=== PATIENT | male | born 1980 | race Caucasian/White ===

== ENCOUNTER → 2016-11-18 | Emergency (ER) | payer OTHER ==
[~2016-11-18] MED LIST: ACETAMINOPHEN 325 MG TABLET (FP) ONE; ACETAMINOPHEN 325 MG TABLET (FP) PO ONE
--- NOTE | 2016-11-18 08:45 | PDOC ---
History of Present Illness - General History Source: Patient Exam Limitations: No Limitations - History of Present Illness Initial Comments: 11/18/16 14:50 The patient is a 36-year-old male living at home, with past medical history significant for traumatic brain injury (1992 and 2010), who presents to the ED with left-sided rib pain s/p an unwitnessed fall in the bathroom a few days ago. The patient states that he experienced a dizzy spell before falling. The pt denies any current dizziness. He denies any loss of consciousness but states that he hit his head agaist the toilet and struck his L side against something. The patient reports having dizzy spells in the past. He states that his left-sided rib pain is intermittent and is exacerbated with deep inspiration and when he is sitting up. Upon examination, the patient denies experiencing any dizziness. Patient is a poor historian. Denies any headache, current dizziness, n/v, vision changes, numbnes/tingling/weakness. The patient denies any fever. chills, coughing, diarrhea, melena, bpr, abdominal pain, shortness of breath, or chest pain. The patient denies any urinary changes, hematuria. PCP: Dr. Chamberlain Allergies: Penicillins <Ami Joshi - Last Filed: 11/18/16 14:50> <Basil Chang - Last Filed: 11/18/16 17:29> - General Chief Complaint: Pain, Acute Stated Complaint: SIDE PAIN Time Seen by Provider: 11/18/16 08:10 Past History <Ami Joshi - Last Filed: 11/18/16 14:50> - Immunization History Immunization Up to Date: Yes - Psycho/Social/Smoking Cessation Hx Anxiety: No Suicidal Ideation: No Smoking History: Never smoked Have you smoked in the past 12 months: No If you are a former smoker, when did you quit?: 14 years ago Hx Alcohol Use: No Drug/Substance Use Hx: No Substance Use Type: None <Basil Chang - Last Filed: 11/18/16 17:29> - Past Medical History Allergies/Adverse Reactions: Allergies Allergy/AdvReac Type Severity Reaction Status Date / Time Penicillins Allergy Verified 06/03/16 14:17 Home Medications: Ambulatory Orders Unobtainable [Unobtainable] 11/18/16 Review of Systems - Review of Systems Able to Perform ROS?: Yes Comments:: 11/18/16 14:50 CONSTITUTIONAL: No reported: Fever, Chills, Diaphoresis, Generalized Weakness, Malaise, Loss of Appetite HEENT: No reported: Rhinorrhea, Nasal Congestion, Throat Pain, Throat Swelling, Difficulty Swallowing, Mouth Swelling, Ear Pain, Eye Pain, Visual Changes CARDIOVASCULAR: No reported: Chest Pain, Syncope, Palpitations, Irregular Heart Rate, Lightheadedness, Peripheral Edema RESPIRATORY: No reported: Cough, Shortness of Breath, SOB with Exertion, Orthopnea, Wheezing , Stridor, Hemoptysis GASTROINTESTINAL: No reported: Abdominal pain, Abdominal Distension, Nausea, Vomiting, Diarrhea, Constipation, Melena, Hematochezia GENITOURINARY: No reported: Dysuria, Frequency, Urgency, Hesitancy, Flank Pain, Genital Pain MUSCULOSKELETAL: Reported: Left-sided rib pain No reported: Arthralgia, Joint Swelling, Back pain, Neck Pain SKIN: No reported: Rash, Itching, Pallor HEMEATOLOGIC/IMMUNOLOGIC: No reported: Easy Bleeding, Easy Bruising, Lymphadenopathy, Frequent infections ENDOCRINE: No reported: Unexplained Weight Gain, Unexplained Weight Loss, Heat Intolerance , Cold Intolerance NEUROLOGIC: reported: dizziness (Resolved) No reported: Headache, Focal Weakness, Paresthesias, Vertigo, Lightheadedness, Unsteady Gait, Seizure, Mental Status Changes, Incontinence PSYCHIATRIC: No reported: Anxiety, Depression <Ami Joshi - Last Filed: 11/18/16 14:50> *Physical Exam - Vital Signs Last Vital Signs Temp Pulse Resp BP Pulse Ox 97.8 F 62 16 111/71 99 11/18/16 11:35 11/18/16 11:35 11/18/16 11:35 11/18/16 11:35 11/18/16 11:35 - Physical Exam Comments: 11/18/16 14:51 GENERAL: The patient is awake, alert Nontoxic - in no acute distress. HEAD: Normocephalic, atraumatic, old scar on the mid vertex of cranium EYES: limited lateral movement of R eye, mild ptosis of R eye, sclera anicteric , conjunctiva clear. ENT: Normal voice, Moist mucous membranes. NECK: Normal range of motion, supple LUNGS: Breath sounds equal, clear to auscultation bilaterally. No wheezes, no rhonchi, no rales. HEART: Regular rate and rhythm, without murmur, rub or gallop. ABDOMEN: Soft, nontender, normoactive bowel sounds. No guarding, no rebound.No CVA tenderness EXTREMITIES: Normal range of motion although movements a bit spastic in the UE. no edema. No clubbing or cyanosis. No cords, erythema, or tenderness. NEUROLOGICAL: No facial assymetry, Normal speech, slightly spastic movements of UE, strength 5/5 and symmetric PSYCH: Normal mood, normal affect. SKIN: Warm, Dry, normal turgor, No ecchymosis noted on torso Back: No midline tenderness to the cervical, thoracic or lumbar spine <Ami Joshi - Last Filed: 11/18/16 14:50> - Vital Signs Last Vital Signs Temp Pulse Resp BP Pulse Ox 97.4 F L 62 20 113/79 100 11/18/16 08:18 11/18/16 08:18 11/18/16 08:18 11/18/16 08:18 11/18/16 08:18 <Basil Chang - Last Filed: 11/18/16 17:29> Heart Score/ECG Review - ECG Impressions Comment:: 11/18/16 17:28 Twelve-lead EKG was performed and reviewed by me. There is normal sinus rhythm with a normal rate. Rate of 71 The axis is normal. The intervals are normal. There is normal R wave progression Nonspecific T-wave inversion in lead 3 Impression: Normal twelve-lead EKG <Basil Chang - Last Filed: 11/18/16 17:29> ED Treatment Course - LABORATORY CBC & Chemistry Diagram: 11/18/16 09:00 11/18/16 09:00 - ADDITIONAL ORDERS Additional order review: Laboratory Results 11/18/16 11/18/16 09:15 09:00 Sodium 142 Potassium 4.2 Chloride 107 Carbon Dioxide 31 Anion Gap 4 L BUN 15 Creatinine 0.8 Creat Clearance w eGFR > 60 Random Glucose 82 D Calcium 8.9 Total Bilirubin 0.7 D AST 20 ALT 28 D Alkaline Phosphatase 59 Total Protein 7.3 Albumin 3.8 Urine Color Yellow Urine Appearance Clear Urine pH 6.0 Ur Specific [place] 1.025 Urine Protein Negative Urine Glucose (UA) Negative Urine Ketones Negative Urine Blood Negative Urine Nitrite Negative Urine Bilirubin Negative Urine Urobilinogen Negative Ur Leukocyte Esterase Negative 11/18/16 09:00 RBC 5.06 MCV 92.9 MCHC 32.9 RDW 13.9 MPV 9.0 Neutrophils % 63.1 Lymphocytes % 23.8 Monocytes % 11.9 H Eosinophils % 1.0 Basophils % 0.2 - Medications Given in the ED: ED Medications Discontinued Medications Generic Name Dose Route Start Last Admin Trade Name Rosas PRN Reason Stop Dose Admin Acetaminophen 650 mg 11/18/16 08:39 11/18/16 09:07 Tylenol - PO 11/18/16 08:40 650 mg ONCE ONE Administration <Ami Joshi - Last Filed: 11/18/16 14:50> - LABORATORY CBC & Chemistry Diagram: 11/18/16 09:00 11/18/16 09:00 <Renan Changan - Last Filed: 11/18/16 17:29> Medical Decision Making - Medical Decision Making 11/18/16 08:40 36y M hx of TBI presents with R flank/rib pain, pt states several days ago, he felt dizzy/lightheaded and fell down. Denies head injury/headache, cp, palpitations, but endoress pain in the right flank that is worse with certain movements (sitting up, deep breath). on exam pt is in no acute distress, and has no focal tenderness appreciated on physical exam. no other trauma noted on head, back. will ck rib series as pt is not a great historian, will ck basic labs to r/o causes of his dizziness (labs, ua, ekg to r/o arhtyhmia) his dizziness may be secondary to his TBI tylenol for pain A portion of this note was documented by scribe services under my direction. 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 Return precautions were discussed I discussed the physical exam findings, ancillary test results and final diagnoses with the patient. I answered all of the patient's questions. The patient was satisfied with the care received and felt comfortable with the discharge plan and treatment plan. The patient will call their primary care physician within 24 hours to arrange follow-up and will return to the Emergency Department with any new, persistent or worsening symptoms. <Basil Chang - Last Filed: 11/18/16 17:29> *DC/Admit/Observation/Transfer - Attestations Scribe Attestion: 11/18/16 14:51 Documentation prepared by Ami Joshi, acting as medical supervisor for Basil Chang MD. <Ami Joshi - Last Filed: 11/18/16 14:50> - Discharge Dispostion Admit: No <Basil Chang - Last Filed: 11/18/16 17:29> Diagnosis at time of Disposition: Rib pain on left side Fall Qualifiers: Encounter type: initial encounter Qualified Code(s): W19.XXXA - Unspecified fall, initial encounter - Discharge Dispostion Disposition: HOME Condition at time of disposition: Improved - Referrals Referrals: Eleno Chamberlain MD [Primary Care Provider] - - Patient Instructions Printed Discharge Instructions: DI for Muscle Strain Additional Instructions: Return to the emergency department immediately with ANY new, persistent or worsening symptoms. Take ibuprofen or Tylenol for pain. You MUST call and follow up with your doctor tomorrow for further evaluation of your symptoms. Results were discussed with you. Please make sure your doctor reviews the results of your emergency evaluation. If you had any xrays during your visit, it was read preliminarily by myself, a Radiologist will review it and if there are any additional findings we will call you. Print Language: WELSH
[2016-11-18 08:52] VITALS: PULSE 62; BMI 29.5
[2016-11-18 09:29] LABS: BASOPHIL 0.2 % (0-2.0); MCH 30.5 pg (25.7-33.7); MCHC 32.9 g/dl (32.0-35.9); MEAN CELL VOLUME 92.9 fl (80-96); NEUTROPHILS 63.1 % (42.8-82.8); PLATELET COUNT 202 K/MM3 (134-434); RDW 13.9 % (11.9-15.9); WHITE BLOOD COUNT 5.7 K/mm3 (4.0-10.0)
[2016-11-18 09:48] LABS: ALBUMIN 3.8 g/dl (3.4-5.0); ALK PHOS 59 U/L (45-117); ANION GAP 4 (8-16); BILIRUBIN,TOTAL 0.7 mg/dL (0.2-1.0); CALCIUM 8.9 mg/dL (8.5-10.1); CO2 31 mmol/L (21-32); CREATININE 0.8 mg/dL (0.7-1.3); GLUCOSE,RANDOM 82 mg/dL (74-106); SGOT/AST 20 U/L (15-37); SGPT/ALT 28 U/L (12-78); TOT PROT 7.3 g/dl (6.4-8.2)
[2016-11-18 09:56] LABS: URINE APPEARANCE CLEAR; URINE BILIRUBIN NEGATIVE (NEGATIVE); URINE BLOOD NEGATIVE (NEGATIVE); URINE COLOR YELLOW; URINE GLUCOSE (UA) NEGATIVE (NEGATIVE); URINE KETONE NEGATIVE (NEGATIVE); URINE LEUK ESTERASE NEGATIVE (NEGATIVE); URINE NITRITE NEGATIVE (NEGATIVE); URINE PROTEIN NEGATIVE (NEGATIVE); URINE UROBILINOGEN NEGATIVE E.U./dl (0.2-1.0)
[2016-11-18 11:47] VITALS: BP 111/71; TEMP 97.8
--- NOTE | 2016-11-18 16:34 | EKG ---
Test Reason : Blood Pressure : / mmHG Vent. Rate : 071 BPM Atrial Rate : 071 BPM P-R Int : 154 ms QRS Dur : 090 ms QT Int : 382 ms P-R-T Axes : 028 053 015 degrees QTc Int : 415 ms NORMAL SINUS RHYTHM NORMAL ECG WHEN COMPARED WITH ECG OF 16-MAR-2016 17:23, NO SIGNIFICANT CHANGE WAS FOUND Confirmed by ANAID MARC MD ([id number]) on 11/18/2016 4:33:44 PM Referred By: Confirmed By:ANAID MARC MD
== END | disposition home or self-care (01) ==
LOC: JER 08:06
DX: S29.011A Strain of muscle and tendon of front wall of thorax, initial encounter (principal); Z87.820 Personal history of traumatic brain injury; W18.39XA Other fall on same level, initial encounter; Y93.89 Activity, other specified; Y92.031 Bathroom in apartment as the place of occurrence of the external cause
CPT/HCPCS: 36415; 71101-TC; 80053; 81003; 85025; 93005; 93010; 99282-25

== ENCOUNTER 2017-08-02 10:31 | Day surgery (SDC) | payer OTHER ==
[2017-08-02 11:22] VITALS: BMI 33.2
[2017-08-02 14:06] VITALS: TEMP 98.5
[2017-08-02 15:04] VITALS: BP 110/75; PULSE 73
--- NOTE | 2017-08-04 12:16 | PATH ---
Surgical Pathology Report Patient Name: MAHI CARDEANS [facility]. Rec. #: [id number] /Age/Gender: 1980 (Age: 37) / M Account: [id number] Location: U-ENDOSCOPY Taken: 08/02/2017 Received: 08/03/2017 Reported: 08/04/2017 Physicians: Se Thomason M.D. Specimen(s) Received BX POLYP IN CECUM Clinical History Fecal incontinence, family history of colon cancer Cecal polyp Final Diagnosis COLON, CECUM, BIOPSY: TUBULAR ADENOMA. REACTIVE HYPERPLASIA OF MUCOSAL ASSOCIATED LYMPHOID TISSUE PRESENT. Electronically Signed Carlos Jefferson M.D. Gross Description Received in formalin, labeled "biopsy polyp in cecum" is a stratton, irregular portion of soft tissue measuring 0.2 cm. in greatest dimension. The specimen is submitted in toto in one cassette. 08/03/2017 saudi08/03/2017
== END 2017-08-02 15:15 | disposition home or self-care (01) ==
LOC: JASU-ENDO 10:31
PROVIDERS: ATTEND Internal Medicine Gastroenterology
PROC: 0DBH8ZX Excision of Cecum, Via Natural or Artificial Opening Endoscopic, Diagnostic (ICD-10-PCS; principal; 2017-08-02 12:00)
DX: Z12.11 Encounter for screening for malignant neoplasm of colon (principal); Z80.0 Family history of malignant neoplasm of digestive organs; D12.0 Benign neoplasm of cecum
CPT/HCPCS: 88305-TC

== ENCOUNTER 2017-10-01 13:46 | Emergency (ER) | payer OTHER ==
[2017-10-01 14:10] VITALS: TEMP 98.3; BMI 30.5
--- NOTE | 2017-10-01 14:16 | PDOC ---
History of Present Illness <Ami Joshi - Last Filed: 10/01/17 16:23> - History of Present Illness Initial Comments: 10/01/17 15:44 The patient is a 37 year old male with a history of traumatic brain injury ( 1992 and 2011) and balance/gait disturbances who presents for evaluation following a fall. The patient is accompanied by his mother who assists in providing the history. They report that the patient tripped and hit his head on a door earlier today and sustained a small laceration. They initially decided not to come to the ED, but then the patient fell again in the bathroom and struck his head in the same place as well as injuring his thumb. They deny LOC or other injuries. The patient denies fevers, chills, sob, chest pain, abdominal pain or changes with urination or bowel movements. <HaileeLenin - Last Filed: 10/01/17 17:17> - General Chief Complaint: Injury Stated Complaint: FALL Time Seen by Provider: 10/01/17 14:05 Past History <AdiAmi - Last Filed: 10/01/17 16:23> - Past Medical History COPD: No Other medical history: Traumatic Brain Injury - Immunization History Immunization Up to Date: Yes - Suicide/Smoking/Psychosocial Hx Smoking History: Former smoker Have you smoked in the past 12 months: No If you are a former smoker, when did you quit?: 12 years ago Information on smoking cessation initiated: No Hx Alcohol Use: No Drug/Substance Use Hx: No Substance Use Type: None <Lenin Stephen - Last Filed: 10/01/17 17:17> - Past Medical History Allergies/Adverse Reactions: Allergies Allergy/AdvReac Type Severity Reaction Status Date / Time Penicillins Allergy Verified 10/01/17 14:03 Home Medications: Ambulatory Orders Ibuprofen [Motrin -] 800 mg PO TID PRN 10/01/17 Review of Systems - Review of Systems Comments:: 10/01/17 15:51 Constitutional: No fevers, chills, fatigue, malaise HEENT: Laceration to the left forehead. No Rhinorrhea, nasal congestion, visual changes Cardiovascular: No chest pain, syncope, palpitations, lightheadedness Respiratory: No Cough, SOB, Hemoptysis, Gastrointestinal: No Abdominal pain, Nausea, Vomiting, Constipation, Diarrhea, Melena Genitourinary: No Dysuria, Frequency, Urgency, Hesitancy, Hematuria, Flank pain Musculoskeletal: Left thumb pain. No Myalgia, arthralgia Skin: No rashes, bruising, pallor Neurologic: No Headache, Dizziness, Numbness, Weakness, or Tingling Psychiatric: No Hallucinations. No SI or HI <Lenin Stephen - Last Filed: 10/01/17 17:17> *Physical Exam - Vital Signs Last Vital Signs Temp Pulse Resp BP Pulse Ox 98.3 F 76 18 108/61 100 10/01/17 14:05 10/01/17 14:05 10/01/17 14:05 10/01/17 14:05 10/01/17 14:05 <Aim Joshi - Last Filed: 10/01/17 16:23> - Vital Signs Last Vital Signs Temp Pulse Resp BP Pulse Ox 98.3 F 76 18 108/61 100 10/01/17 14:05 10/01/17 14:05 10/01/17 14:05 10/01/17 14:05 10/01/17 14:05 - Physical Exam Comments: 10/01/17 15:57 General Appearance: Nourished. No Apparent Distress HEENT: EOMI, Right pupil is 5mm and left pupil is 3mm which is baseline. 1cm superficial laceration to the left forehead. Neck: No Cervical Lymphadenopathy Respiratory/Chest: Lungs Clear, Normal Breath Sounds. No Crackles, Rales, Rhonchi, Wheezing Cardiovascular: Regular Rhythm, Regular Rate. No Murmur, Gallops, Rubs Gastrointestinal/Abdominal: Normal Bowel Sounds, Soft. No Guarding, Rebound, Tenderness Musculoskeletal: Full ROM of the left hand and thumb without any tenderness to palpation. 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 10/01/17 17:16 <Leinn Stephen - Last Filed: 10/01/17 17:17> ED Treatment Course - Medications Given in the ED: ED Medications Discontinued Medications Generic Name Dose Route Start Last Admin Trade Name Freq PRN Reason Stop Dose Admin Diphtheria/Tetanus/Acell Pertussis 0.5 ml 10/01/17 14:24 10/01/17 14:36 Boostrix - IM 10/01/17 14:25 0.5 ml .ONCE ONE Administration <Ami Joshi - Last Filed: 10/01/17 16:23> Medical Decision Making - Medical Decision Making 10/01/17 16:23 Dr. Mac was paged and notified via phone service. <Ami Joshi - Last Filed: 10/01/17 16:23> - Medical Decision Making 10/01/17 15:58 The patient is a 37 year old male with a history of traumatic brain injury ( 1992 and 2011) and balance/gait disturbances who presents for evaluation following a fall. Differential includes but is not limited to: Fracture, contusion, intracranial process, ligamentous injury. Given the patient's history of trauma, we will obtain a head ct to evaluate for intracranial process as well as a plain film of the left hand to evaluate for fracture. We will continue to monitor and reassess. 10/01/17 15:59 Patient's plain film of the left hand demonstrates a small possible fracture of the distal left thumb as read by our radiologist. The patient does not report pain in that location with normal range of motion and does not clinically appear to have a fracture in that location. However, we will place the patient in a thumb spika with ortho follow up. 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 We discussed the case with Dr. Mac who agrees with outpatient follow up as long as the patient is oriented and does not have any urinary incontinence. The patient denies any urinary incontinence and is alert and oriented x3. We are comfortable discharging the patient with neurology and orthopedic follow up. We discussed the plan with the patient and the results. The patient and his family voiced understanding and is agreeable with the plan. <Lenin Stephen - Last Filed: 10/01/17 17:17> *DC/Admit/Observation/Transfer <Ami Joshi - Last Filed: 10/01/17 16:23> - Discharge Dispostion Admit: No <Lenin Stehpen - Last Filed: 10/01/17 17:17> Diagnosis at time of Disposition: Fall Qualifiers: Encounter type: initial encounter Qualified Code(s): W19.XXXA - Unspecified fall, initial encounter - Discharge Dispostion Disposition: HOME Condition at time of disposition: Good - Referrals Referrals: Elana Hernandez MD [Primary Care Provider] - Anjum Mac MD [Staff Physician] - Ismael Hanley MD [Staff Physician] - - Patient Instructions Printed Discharge Instructions: Hydrocephalus Additional Instructions: Please return to the ER if you experience concerning or worsening symptoms including inability to control your urination or increased confusion. Your imaging results demonstrated a possible small fracture in your thumb. We have placed you in a splint and you should call Dr. Hanley our Orthopedic surgeon to schedule follow up within 3-4 days. Your imaging results also demonstrated some extra fluid around your brain. We discussed your case with our neurologist and you should call Dr. Mac to schedule follow up within 3-4 days as well.
[2017-10-01] MEDS ORDERED: DIPHTH,PERTUSS(ACELL),TET 0.5 ML DISP.SYRIN IM ONE (14:24)
[2017-10-01 17:28] VITALS: BP 108/66; PULSE 62
--- NOTE | 2017-10-05 12:09 | EKG ---
Test Reason : Blood Pressure : / mmHG Vent. Rate : 069 BPM Atrial Rate : 069 BPM P-R Int : 154 ms QRS Dur : 092 ms QT Int : 380 ms P-R-T Axes : 045 058 024 degrees QTc Int : 407 ms NORMAL SINUS RHYTHM NORMAL ECG WHEN COMPARED WITH ECG OF 18-NOV-2016 09:07, NO SIGNIFICANT CHANGE WAS FOUND Confirmed by KRYSTEN DICK MD ([id number]) on 10/05/2017 12:09:24 PM Referred By: Confirmed By:KRYSTEN DICK MD
== END 2017-10-01 17:30 | disposition home or self-care (01) ==
LOC: JER 13:46
PROC: 3E0234Z Introduction of Serum, Toxoid and Vaccine into Muscle, Percutaneous Approach (ICD-10-PCS; principal; 2017-10-01)
DX: S09.8XXA Other specified injuries of head, initial encounter (principal); S69.82XA Other specified injuries of left wrist, hand and finger(s), initial encounter; W01.198A Fall on same level from slipping, tripping and stumbling with subsequent striking against other object, initial encounter; Y93.89 Activity, other specified; Y92.012 Bathroom of single-family (private) house as the place of occurrence of the external cause; Z87.820 Personal history of traumatic brain injury; Z87.891 Personal history of nicotine dependence
CPT/HCPCS: 70450-TC; 73130-TC-LT; 90471; 90715; 93005; 93010; 99283-25

== ENCOUNTER 2017-10-18 10:31 | Day surgery (SDC) | payer OTHER ==
[2017-10-17 10:56] VITALS: BMI 30.8
[2017-10-18 11:17] LABS: BASOPHIL 0.3 % (0-2.0); EOSINOPHIL 0.8 % (0-4.5); MCH 30.5 pg (25.7-33.7); MCHC 33.1 g/dl (32.0-35.9); MEAN PLT VOLUME 8.4 fl (7.5-11.1); NEUTROPHILS 62.2 % (42.8-82.8); PLATELET COUNT 207 K/MM3 (134-434); RDW 13.2 % (11.9-15.9); WHITE BLOOD COUNT 5.7 K/mm3 (4.0-10.0)
[2017-10-18 11:46] LABS: INR 1.03 (0.82-1.09); PROTHROMBIN TIME (PATIENT) 11.6 SEC (9.98-11.88)
[2017-10-18 11:56] VITALS: TEMP 98.3
[2017-10-18 16:25] VITALS: BP 132/76; PULSE 72
== END 2017-10-18 16:25 | disposition home or self-care (01) ==
LOC: JRADIR 10:31
PROVIDERS: ATTEND Psychiatry & Neurology Neurology
PROC: 009U3ZX Drainage of Spinal Canal, Percutaneous Approach, Diagnostic (ICD-10-PCS; principal; 2017-10-18)
PROC: 009U3ZX Drainage of Spinal Canal, Percutaneous Approach, Diagnostic (ICD-10-PCS; 2017-10-18)
PROC: B01BZZZ Fluoroscopy of Spinal Cord (ICD-10-PCS; 2017-10-18)
DX: R26.81 Unsteadiness on feet (principal)
CPT/HCPCS: 36415; 62272; 77002-TC; 85025; 85610